=== PATIENT | male | born 1995 | race American Indian/Alaskan Native ===

== ENCOUNTER 2021-02-19 02:55 | Emergency (ER) | payer SELFPAY ==
--- NOTE | 2021-02-19 05:14 | XRay Report ---
XR chest routine 2V INDICATION / CLINICAL INFORMATION: Syncope. COMPARISON: None available. FINDINGS: SUPPORT DEVICES: None. HEART /PULMONARY VASCULATURE: No significant abnormality. LUNGS / PLEURA: No significant pulmonary or pleural abnormality. No pneumothorax. ADDITIONAL FINDINGS: No significant additional findings. IMPRESSION: 1. No acute findings. Signer Name: Frankie Winston MD Signed: 02/19/2021 5:09 AM Workstation Name: [id number]
[2021-02-19 05:34] LABS: Basophils # (Auto) 0.1 K/mm3 (0.0-0.1); Basophils % (Auto) 0.5 % (0.0-1.8); Eosinophils # (Auto) 0.1 K/mm3 (0.0-0.4); Eosinophils % (Auto) 0.5 % (0.0-4.3); Hematocrit 44.8 % (35.5-45.6); Hemoglobin 14.5 gm/dl (11.8-15.2); Lymphocytes # (Auto) 1.3 K/mm3 (1.2-5.4); Lymphocytes % (Auto) 11.7 % (13.4-35.0); Mean Corpuscular HGB Conc 33 % (32-34); Mean Corpuscular Volume 84 fl (84-94); Monocytes # (Auto) 0.6 K/mm3 (0.0-0.8); Monocytes % (Auto) 5.3 % (0.0-7.3); Platelet Count 370 K/mm3 (140-440); Red Blood Count 5.35 M/mm3 (3.65-5.03); Red Cell Distribution Width 13.6 % (13.2-15.2)
[2021-02-19 05:47] LABS: Alanine Aminotransferase 12 units/L (7-56); Albumin 4.6 g/dL (3.9-5); BUN/Creatinine Ratio 19; Blood Urea Nitrogen 17 mg/dL (9-20); Calcium 9.4 mg/dL (8.4-10.2); Hemolysis Index 20
--- NOTE | 2021-02-19 07:00 | Emergency Department Report ---
ED Syncope HPI - General Chief Complaint: Syncope Stated Complaint: PASSING OUT Time Seen by Provider: 02/19/21 04:41 - History of Present Illness Initial Comments: 25-year-old male with no significant past medical history presents emerged department complaining of having a possible syncopal episode while consuming Shanna on 2 different occasions. History first occasion was a few weeks ago when he was drinking and states he may have passed out for about 5 to 6 seconds and then it occurred again today while he was driving Shanna for 5 to 10 seconds. No prodromal symptoms preceded the attack and patient reports no head ache, no blurry vision, no neck pain, no fever, chills, sweats. No nausea, no vomiting,, no palpitations. He denies any illicit drug use. He was sitting on the couch at the time of of the incident he reports no no history of vertigo. Overall he reports he feels normal but does not know what the culprit is for the symptoms and he denies emphatically of any seizure or cardiac history Current Symptoms: denies: injury, loss of bladder control, loss of bowel control, shallow/rapid breathing, weak/absent pulse, weakness - Related Data Allergies/Adverse Reactions: Allergies No Known Allergies Allergy (Verified 02/19/21 03:03) ED Review of Systems ROS: Stated complaint: PASSING OUT Other details as noted in HPI Comment: All other systems reviewed and negative ED Past Medical Hx - Past Medical History Previous Medical History?: No - Surgical History Past Surgical History?: No ED Physical Exam - General Limitations: No Limitations General appearance: alert, in no apparent distress - Head Head exam: Present: atraumatic, normocephalic - Eye Eye exam: Present: normal appearance, PERRL, EOMI Pupils: Present: normal accommodation - ENT ENT exam: Present: normal exam, normal orophraynx, mucous membranes moist, TM's normal bilaterally - Neck Neck exam: Present: normal inspection - Respiratory Respiratory exam: Present: normal lung sounds bilaterally. Absent: respiratory distress - Cardiovascular Cardiovascular Exam: Present: regular rate, normal rhythm. Absent: systolic murmur, diastolic murmur, rubs, gallop - GI/Abdominal GI/Abdominal exam: Present: soft, normal bowel sounds - Rectal Rectal exam: Present: deferred - Extremities Exam Extremities exam: Present: normal inspection - Back Exam Back exam: Present: normal inspection - Neurological Exam Neurological exam: Present: alert, oriented X3, CN II-XII intact, normal gait, other (A little dizziness with Romberg but no drift) - Psychiatric Psychiatric exam: Present: normal affect, normal mood. Absent: anxious, manic - Skin Skin exam: Present: warm, dry, intact, normal color. Absent: rash, cyanosis ED Course Vital Signs 02/19/21 02:58 Temperature 97.9 F Pulse Rate 87 Respiratory 17 Rate Blood Pressure 125/81 [Right] O2 Sat by Pulse 100 Oximetry ED Medical Decision Making - Lab Data Result diagrams: 02/19/21 05:12 02/19/21 05:12 Lab Results 02/19/21 02/19/21 02/19/21 Range/Units 05:12 05:12 05:12 WBC 10.7 (4.5-11.0) K/mm3 RBC 5.35 H (3.65-5.03) M/mm3 Hgb 14.5 (11.8-15.2) gm/dl Hct 44.8 (35.5-45.6) % MCV 84 (84-94) fl MCH 27 L (28-32) pg MCHC 33 (32-34) % RDW 13.6 (13.2-15.2) % Plt Count 370 (140-440) K/mm3 Lymph % (Auto) 11.7 L (13.4-35.0) % Stewart % (Auto) 5.3 (0.0-7.3) % Eos % (Auto) 0.5 (0.0-4.3) % Baso % (Auto) 0.5 (0.0-1.8) % Lymph # (Auto) 1.3 (1.2-5.4) K/mm3 Stewart # (Auto) 0.6 (0.0-0.8) K/mm3 Eos # (Auto) 0.1 (0.0-0.4) K/mm3 Baso # (Auto) 0.1 (0.0-0.1) K/mm3 Seg Neutrophils % 82.0 H (40.0-70.0) % Seg Neutrophils # 8.8 H (1.8-7.7) K/mm3 Sodium 138 (137-145) mmol/L Potassium 3.8 (3.6-5.0) mmol/L Chloride 102.1 (98-107) mmol/L Carbon Dioxide 22 (22-30) mmol/L Anion Gap 18 mmol/L BUN 17 (9-20) mg/dL Creatinine 0.9 (0.8-1.3) mg/dL Estimated GFR > 60 ml/min BUN/Creatinine Ratio 19 % Glucose 83 (75-100) mg/dL Calcium 9.4 (8.4-10.2) mg/dL Total Bilirubin 0.50 (0.1-1.2) mg/dL AST 13 (5-40) units/L ALT 12 (7-56) units/L Alkaline Phosphatase 75 (35-129) units/L Total Protein 7.8 (6.3-8.2) g/dL Albumin 4.6 (3.9-5) g/dL Albumin/Globulin Ratio 1.4 % Plasma/Serum Alcohol < 0.01 (0-0.07) % - Radiology Data Radiology results: report reviewed [facility] [address] [place] [address] XRay Report Signed Patient: OBDULIO MCINTOSH MR#: [id number] : 1995 Acct:[id number] Age/Sex: 25 / M ADM Date: 02/19/21 Loc: ED Attending Dr: Ordering Physician: ESVIN FARR Date of Service: 02/19/21 Procedure(s): XR chest routine 2V Accession Number(s): [id number] cc: ESVIN FARR Fluoro Time In Minutes: XR chest routine 2V INDICATION / CLINICAL INFORMATION: Syncope. COMPARISON: None available. FINDINGS: SUPPORT DEVICES: None. HEART /PULMONARY VASCULATURE: No significant abnormality. LUNGS / PLEURA: No significant pulmonary or pleural abnormality. No pneumothorax. ADDITIONAL FINDINGS: No significant additional findings. IMPRESSION: 1. No acute findings. Signer Name: Clifford Winston MD Signed: 02/19/2021 5:09 AM Workstation Name: [id number] Transcribed By: DONYA Dictated By: CLIFFORD WINSTON MD Electronically Authenticated By: CLIFFORD WINSTON MD Signed Date/Time: 02/19/21508 DD/ 8 TD/TT: Print Critical care attestation.: If time is entered above; I have spent that time in minutes in the direct care of this critically ill patient, excluding procedure time. ED Disposition Clinical Impression: History of syncope Disposition: [facility] Is pt being admited?: No Does the pt Need Aspirin: No Condition: Stable Instructions: Syncope Referrals: PRIMARY CARE, [Primary Care Provider] - 3-5 Days ANNALEE PEREA MD [Staff Physician] - 3-5 Days
[2021-02-19 08:17] LABS: Amphetamine Screen,Urine Negative; Benzodiazepines Screen,Urine Negative; Cocaine Screen,Urine Negative; Methadone Screen,Urine Negative; Opiate Screen,Urine Negative
[2021-02-19 08:33] LABS: Cannabinoid Screen,Urine Positive
[2021-02-19 09:07] VITALS: BP 127/80
== END 2021-02-19 09:07 ==
LOC: ED 02:55
DX: R55 Syncope and collapse (principal)
CPT/HCPCS: 36415; 71046; 80053; 80307; 80320; 85025; 99283; G0480